=== PATIENT | female | born 1960 | race Caucasian/White ===

== ENCOUNTER 2024-07-08 06:25 | Day surgery (SDC) | payer OTHER ==
[2024-07-05 14:04] LABS: Absolute Eosinophils 0.2 K/uL (0-0.5); Absolute Monocytes 0.3 K/uL (0.1-1.3); Absolute Neutrophil 3.6 K/uL (1.8-8.0); Basophils % 0.8 % (0-1.3); Eosinophils % 3.4 % (0-4.4); Hematocrit 38.6 % (36.0-45.0); Hemoglobin 12.2 g/dL (12.0-15.0); Lymphocytes % 18.6 % (15.3-44.8); MCH 30.3 pg (27.0-35.0); MCHC 31.6 g/dL (32.0-36.0); MPV 7.2 fL (7.6-11.3); Monocytes % 6.8 % (3.3-12.3); Neutrophils % 70.4 % (41.7-73.7); Platelets 221 thou/uL (152-406); RBC Red Blood Cell Count 4.02 M/uL (3.86-4.86); Red Cell Distribution Width 15.9 % (12.1-15.2)
[2024-07-05 14:06] LABS: Specific Gravity 1.017 (1.005-1.030); Sqamous Epithelial <5 /HPF (None Seen); Urine Bacteria <20 /HPF (<20); Urine Bilirubin NEGATIVE (Negative); Urine Blood Negative (Negative); Urine Clarity Clear (Clear); Urine Color Light-Yellow (Yellow); Urine Culture Reflex Order NOT NEEDED; Urine Glucose NEGATIVE (Negative); Urine Ketones NEGATIVE (Negative); Urine Microscopic Reflex YN ORDER UMIC; Urine Mucus Slight /HPF (None Seen); Urine Nitrite NEGATIVE (Negative); Urine Protein NEGATIVE (Negative); Urine RBC <5 /HPF (None Seen); Urine Urobilinogen Normal (Normal); Urine WBC <5 /HPF (<5); Urine Yeast (Budding) Trace /HPF (None Seen); Urine pH 6.5 (5.0-7.0)
[2024-07-05 14:17] LABS: Anion Gap 6.3 mEq/L (5.0-15.0); Potassium 4.3 mEq/L (3.5-5.1)
--- NOTE | 2024-07-05 17:20 | EKG ---
Test Date: 2024-07-05 Test Time: 14:36:03 It Service Manager: CAROLYN MEASUREMENT RESULTS: Intervals: Rate: 53 OH: 182 QRSD: 120 QT: 430 QTc: 403 Converse: P: 72 OH: 182 QRS: 28 T: 44 INTERPRETIVE STATEMENTS: Sinus bradycardia with sinus arrhythmia Low voltage QRS Right bundle branch block Abnormal ECG No previous ECG available for comparison Electronically Signed On 07-05-24 17:19:43 CLINICAL PROGRAM DIRECTOR by Zeb Ruiz
[2024-07-08] MEDS: Ringers Lactate 1,000 ML IV ONE (06:25)
[2024-07-08] MEDS ORDERED: CEFAZOLIN SODIUM 1 GM/VIAL ONE (06:42)
[2024-07-08] MEDS: SCOPOLAMINE HYDROBROMIDE PATCH TD ONE (07:10)
[2024-07-08] MEDS ORDERED: propofoL 200 MG/20 ML VIAL IV ONE (07:11)
[2024-07-08] MEDS ORDERED: ONDANSETRON 4 MG/2 ML VIAL ONE (07:11)
[2024-07-08] MEDS ORDERED: LIDOCAINE 2% MPF 5 ML VIAL ONE (07:11)
[2024-07-08] MEDS ORDERED: FENTANYL CITR 100 MCG/2 ML ONE ×2 (07:11→08:35)
[2024-07-08] MEDS ORDERED: MIDAZOLAM HCL 2 MG/2 ML INJ ONE (07:11)
[2024-07-08] MEDS ORDERED: ROCURONIUM 50 MG/5 ML VIAL IV ONE ×2 (07:12→09:05)
[2024-07-08] MEDS: CEFAZOLIN SODIUM 2 GM/VIAL ONE (07:27)
[2024-07-08] MEDS: BUPIVACAINE 0.25% PF 30 ML VIAL ONE (07:27)
[2024-07-08] MEDS: NA CHLORIDE 0.9% 1,000 ML ONE (08:15)
[2024-07-08] MEDS ORDERED: EPHEDRINE SULF 50 MG/ML VIAL ONE (08:30)
[2024-07-08] MEDS ORDERED: dexAMETHasone 4 MG/ML VIAL ONE (09:17)
[2024-07-08] MEDS ORDERED: Mastisol Adhesive Liq ONE (09:59)
[2024-07-08] MEDS ORDERED: GLYCOPYRROLATE 0.2 MG/ML SYR ONE (10:12)
[2024-07-08] MEDS ORDERED: NEOSTIGMINE 1 MG/ML -10 ML VIAL ONE (10:12)
[2024-07-08] MEDS ORDERED: ESMOLOL HCL 10 ML IV ONE (10:33)
[2024-07-08] MEDS: FENTANYL CITR 100 MCG/2 ML ONE (10:51)
[2024-07-08] MEDS: ONDANSETRON 4 MG/2 ML VIAL ONE (10:56)
[2024-07-08] MEDS: PROMETHAZINE INJ 25 MG/ML AMP ONE (11:53)
[2024-07-08] MEDS: HYDROCODONE/APAP 5/325 MG TAB ONE (12:17)
[2024-07-08 13:18] VITALS: TEMP 98; O2SAT 94
[2024-07-08 13:28] VITALS: BP 130/60
--- NOTE | 2024-07-09 01:13 | OP ---
Date of Procedure: 07/08/2024 Surgeon: Tricia Farah MD Machine Heel Builder: Elida Mackenzie. Preoperative Diagnosis: Postmenopausal bleeding and endometrial polyps. Postoperative Diagnosis: Postmenopausal bleeding and endometrial polyps. Procedures Performed: Total laparoscopic hysterectomy, bilateral salpingo-oophorectomy, pelvic washi ngs, left lateral wall nodule biopsy, and lysis of adhesions from the sigmoid colon to the left tube and the lateral wall. Anesthesia: General endotracheal. Ebl: 50. Specimens: Uterus, bilateral tubes and ovaries, pelvic washings, and left lateral wall nodule, utero sacral suspensions. Complications: No complications. Drains: No drains. Condition: Stable. Findings: Left lateral wall nodule which appeared to be peritoneal, but it was deep and infiltrating was attached to the sigmoid colon with the epiploicae and not to the wall. This nodule was infiltra ting once I opened the peritoneum all around it, deep and infiltrating to the area of the distal port ion of the ureter right underneath the uterine artery. I could not completely separate out the nodul e, and therefore, shave biopsy was taken and handed out. The vaginal cuff was closed with PDS sutures in an interrupted fashion. Indication: The patient is a 63-year-old referred by Dr. Dhaliwal who has a renal cell carcinoma and i s currently under treatment for this. She also has history of smoking and has not been able to quit this. So after medical clearance was obtained from Hematology, where the recommendation was that we operate on the week. She is off Keytruda. Dr. Dennis gave her a risk assessment as well and cleared h er, so then she was brought to the operating room. After workup, she had an endometrial sampling that did not show any atypia or malignancy. There was endometrial polyp. There was a small area on the posterior distal wall that appeared to be irregular , but rest of the endometrium appeared to be unremarkable. 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 Benefits and risks were reviewed with the patient a nd she wanted to proceed with a hysterectomy. Since clearance was given, we brought her to the OR. After informed consent was verified in the preoperative area, she was taken back to the OR. All ques tions and answers were done to the satisfaction of her and her partner. Procedure In Detail: She was placed in supine fashion on the operating table. General anesthesia wa s given and then placed in a dorsal lithotomy position using Bryce stirrups. Arms were tucked by the side. SCDs were started. Positioning was checked. Time-out was done. Abdomen prepped with Chlora Prep. Vulva, vagina, and perineum with Betadine and draped in a sterile fashion. Yanez was placed t o drain the bladder. Speculum placed to expose the cervix and anterior lip of the cervix was grasped with 2 Allis clamps, dilated to 16-Peruvian and a medium-size cup uterine manipulator was introduced a nd fixed in place. This area was draped. 1 cm infraumbilical midline incision was made with a scalpel after injecting Bupivacaine on the skin. Then, fascia was incised and tagged with 0 Vicryl sutures. While the patient had history of hernia repair, this was without mesh and then the incision was in the upper midline abdomen. I was able to easily incise the fascia, tagged with 0 Vicryl sutures, and into peritoneum bluntly and S retractors were placed. David introduced and after adequate insufflation, there were adhesions of the omentum to the anterior abdominal wall on the right side. The patient also had a right nephrectomy robotica lly and these adhesions could be also from that procedure. The patient was placed in a significant Trendelenburg. A 10/11 trocar into suprapubic site and two 5s on both of the lower quadrants and then left upper quadrant midclavicular line port. 5 ports was also placed. After surveying the pelvic cavity, the adhesions of the colon as noted in the findings were noted. Lysis of sigmoid adhesions, these were taken starting on the left paracolic gutter coming down to the pelvic brim and then they were taken down to the left lateral pelvic sidewall. The ureter was ident ified medially and swept laterally. Then, dissection was performed to separate the colon from the si dewall as well as the tubes. The tubal adhesions were taken down also with the LigaSure, as there we re vascular. The tube and ovary were dissected from the posterior broad ligament and out. Lateral mesos alpinx on the left side was opened up to the round ligament and then to the base of the IP and the me dial leaf of the broad ligament between the IP ligament and the ureter was opened up sharply. The ov doreen pedicle was taken down with the help of the LigaSure. The round ligament was then isolated and taken down on the left side, anterior peritoneum dissected to the anterior vaginal wall, raising the bladder flap, exposing the vessels, and then posterior peritoneum taken down to the posterior cuff. As I was dissecting this, there was a lateral nodule where the epiploicae of the colon were adhered to the periureteric area. Periureteric nodule, left lateral wall nodule biopsy. The peritoneum on the periphery of this nodule was opened up, which was normal with the LigaSure with slight heat as well as sharp dissection. The n as I was attempting to remove this entire nodule, the ureter had to be dissected and once the cours e of the ureter was viewed, this nodule was right on top of the distal portion of the ureter. So a s have biopsy was taken with the LigaSure and handed off for permanent pathology, and I dissected the p eritoneum inferior and medial to the nodule to open up the space to expose the uterosacral ligament a nd dissected the ureter laterally. Once this space was obtained then the peritoneum taken down to co me down to the posterior portion of the vaginal cuff. Then anteriorly, the vessels were isolated and dissection performed to isolate the vessels closer to the internal os. Once this was done, they wer e cauterized and cut with the bipolar. The cardinal ligaments were also cauterized and cut with the bipolar and monopolar instruments. On the opposite side, the IP ligament was isolated opening the mesosalpinx above and below it, then t aken down the round ligament going down dissecting the peritoneum anterior leaves towards the IP. Th e peritoneum between the ureter and IP was taken down. The pedicle of the ovary was cauterized and c ut and . Mesosalpinx was taken down since round was already taken down posterior peritoneum taken down to the posterior cuff and the vessels were isolated after taking down the broad ligament vessels. The vessels were taken down with the help of the LigaSure and the monopolar hook blade. Th e cardinal ligaments were also taken, cauterized, and cut. The bladder was dissected inferiorly claudia ply and then once this was done to at least 1 cm, then the monopolar hook was used to perform an ante rior colpotomy and carried on both sides to the posterior and the specimen and retrieved th rough the vagina. Vaginal occluder was placed. There was excellent hemostasis. Interrupted PDS sut ures were placed, 2 angle simple sutures and 3 [id number] in the middle. Good apposition and s upport were noted. The ureters had no evidence of electrical, mechanical injury to them, but the nod ule on the left side was still persistent. After visualizing the entire peritoneal cavity, all the trocars were removed under direct vision. Th e patient was flattened out and the fascia at the umbilicus was closed with the tag 0 Vicryl sutures tied to each other after desufflating the abdomen and removing the David. Suprapubic site was diffi cult to close at the fascial level, so a deep subcutaneous stitch was placed with a simple 0 Vicryl s titch and all skin incisions closed with 4-0 Monocryl and 4-0 Vicryl as available. Yanez was removed and vaginal occluder was removed. The patient was recovered from anesthesia. EBL was 50. She was taken to the recovery room in stable condition and her was debriefed about the procedure. We will see her back in the office in 7 to 10 days and then in 1 month postop and she has been signific antly counseled about cessation of cigarettes explaining the delayed healing as well as complications like infection and poor healing are more common dehiscence was also reviewed. The patient was ready to attempt to quit cigarettes. KEV/KULDIP Voice ID: [id number] Report ID: [id number]
== END 2024-07-08 12:37 | disposition home or self-care (01) ==
LOC: OR 06:25
PROVIDERS: ATTEND Obstetrics & Gynecology
PROC: 0UT24ZZ Resection of Bilateral Ovaries, Percutaneous Endoscopic Approach (ICD-10-PCS; 2024-07-08)
PROC: 0UT74ZZ Resection of Bilateral Fallopian Tubes, Percutaneous Endoscopic Approach (ICD-10-PCS; 2024-07-08)
PROC: 0UT94ZZ Resection of Uterus, Percutaneous Endoscopic Approach (ICD-10-PCS; principal; 2024-07-08 07:30)
DX: N95.0 Postmenopausal bleeding (principal); N84.0 Polyp of corpus uteri; C64.9 Malignant neoplasm of unspecified kidney, except renal pelvis; F17.210 Nicotine dependence, cigarettes, uncomplicated; N88.8 Other specified noninflammatory disorders of cervix uteri
CPT/HCPCS: 58571; 93005; 85025; 81001; 80048; 36415; 86900; 88108; 86850; 86901; 88305 ×2; 88307; J2550; J2704; J1100; J2710; J2003; J2250; J3010 ×3; J2405 ×2; J7120; J7030; J0690

== ENCOUNTER 2024-08-02 17:37 | Emergency (ER) | payer OTHER ==
--- OUTSIDE RECORDS SUMMARY | 2024-08-02 17:41 | XMS REPORT | Clinical Summary ---
Author Name Unknown Organization [facility] Address [address] [place] [address] Care Team Providers Care Tire Mounter Name Role Phone Maricruz Seo MD Primary Care Provider Alli Dorsey MD Primary Care Provider [phone] Active Problems Problem Noted Date Diagnosed Date Renal mass 08/12/2023 Encounters Date Type Department Care Team Description 09/17/2023 8:05 PM [employer] Ancillary Procedure Image Library [address] [place] [id number] Alli Dorsey MD Cancer 09/17/2023 8:00 PM [employer] Ancillary Procedure Image Library [address] [place] [id number] Alli Dorsey MD Cancer after 08/03/2023 Medical History Medical History Date Comments Overactive bladder Hypertension Gastro-esophageal reflux disease without esophag itis Social History Tobacco Use Types Packs/Day Years Used Date Smoking Tobacco: Never Assessed Comments Unknown Sex and Gender Information Value Date Recorded Sex Assigned at Not on file Legal Sex Female 9:05 AM [employer] Gender Identity Not on file Sexual Orientation Not on file Obstetrics History Plan of Treatment Not on file Procedures Procedure Name Priority Date/Time Associated Diagnosis Comments OSI CT ABDOMEN Routine 08/20/2023 7:29 PM [employer] Cancer OSI CT CHEST Routine 08/12/2023 7:32 PM [employer] Cancer after 08/03/2023 Results * OSI CT Abdomen (08/20/2023 7:29 PM [employer]) Narrative Systemgenerated, Documentation - 09/17/2023 7:29 PM [employer] Study acquired at another institution. For comparison only. No MD Dye originated interpretation requested or available. us Alli Dorsey MD IMG OUTSIDE IMAGE ORDERABLES Fin al Result * OSI CT Chest (08/12/2023 7:32 PM [employer]) Narrative Systemgenerated, Documentation - 09/17/2023 7:32 PM [employer] Study acquired at another institution. For comparison only. No MD Dye originated interpretation requested or available. us Alli Dorsey MD IMG OUTSIDE IMAGE ORDERABLES Fin al Result after 08/03/2023 Insurance [employer] MED[employer] PPO [employer] MEDICARE PPO Care Teams Tire Mounter Relationship Specialty [place] [address] [place] [id number] [email or web address] PCP - General Urology 09/11/23 09/15/23 Alli Dorsey MD [address] [place] [address] [email or web address] PCP - General Urology 09/16/23
--- NOTE | 2024-08-02 18:50 | RAD REPORT ---
EXAMINATION: ONE VIEW CHEST XR CLINICAL INDICATION: Female, 63 years old.,ABDOMINAL DISTENTION TECHNIQUE: Frontal chest projection is submitted. Examination is limited by patient positioning and t echnique. COMPARISON: No prior exam. FINDINGS: The lungs are well inflated and clear. No pneumothorax or sizable effusion. The heart is normal in s ize. Mediastinal contours are unremarkable. IMPRESSION: No acute intrathoracic abnormalities.
[2024-08-02] MEDS ORDERED: NA CHLORIDE 0.9% 1,000 ML ONE (20:13)
[2024-08-02 20:22] LABS: Absolute Basophils 0.1 K/uL (0-0.5); Absolute Eosinophils 0.4 K/uL (0-0.5); Absolute Lymphocytes (CBC) 1.1 K/uL (0.7-4.9); Absolute Monocytes 0.6 K/uL (0.1-1.3); Absolute Neutrophil 4.5 K/uL (1.8-8.0); Basophils % 0.9 % (0-1.3); Eosinophils % 5.5 % (0-4.4); Hematocrit 38.9 % (36.0-45.0); Hemoglobin 12.6 g/dL (12.0-15.0); Lymphocytes % 16.2 % (15.3-44.8); MCH 30.9 pg (27.0-35.0); MCHC 32.4 g/dL (32.0-36.0); MCV 95.3 fL (80-100); MPV 7.3 fL (7.6-11.3); Neutrophils % 68.4 % (41.7-73.7); Nucleated Red Blood Cells % 0.2 % (0-0); Platelets 221 thou/uL (152-406); RBC Red Blood Cell Count 4.08 M/uL (3.86-4.86); Red Cell Distribution Width 15.1 % (12.1-15.2)
[2024-08-02 20:24] LABS: PT Prothrombin Time 12.8 SECONDS (9.4-12.5); Protime INR 1.15
[2024-08-02 20:39] LABS: Albumin 3.2 g/dL (3.4-5.0); Albumin/Globulin Ratio 0.9 (1.1-1.8); Alkaline Phosphatase 95 U/L (45-117); Anion Gap 5.9 mEq/L (5.0-15.0); BUN Blood Urea Nitrogen 10 mg/dL (7-18); Bicarbonate 31 mEq/L (21-32); Bilirubin Total 0.3 mg/dL (0.2-1.0); Globulin 3.6 g/dL (2.3-3.5); Glomerular Filtration Rate 43 ml/min (=/>90); Glucose Level 86 mg/dL (74-106); Lipase 15 U/L (13-75); Magnesium 1.9 mg/dL (1.6-2.4); NT PRO-BNP 609 pg/mL (<125); Potassium 3.9 mEq/L (3.5-5.1); Protein, Total 6.8 g/dL (6.4-8.2); Sodium Level 139 mEq/L (136-145); Troponin High Sensitivity 6.9 pg/mL (<58.9)
[2024-08-02 20:41] LABS: ALT/SGPT < 14 U/L (13-56); AST/SGOT < 10 U/L (15-37); Bilirubin Direct < 0.2 mg/dL (0-0.2); Bilirubin Indirect, Calculated 0.1 mg/dL (0.2-0.8)
[2024-08-02 20:42] LABS: SARS-CoV-2 Antigen CONTROL BLUE LINE VIS/BG OK; SARS-CoV-2 Antigen Rapid Res Negative (Negative)
--- NOTE | 2024-08-02 21:57 | RAD REPORT ---
EXAM: CT Chest For Pe Angio TECHNIQUE: CT angiogram of the chest was performed following intravenous contrast administration, inc luding sagittal and coronal as well as maximum intensity projection reformats. One or more of the following dose reduction techniques were used: Automated exposure control, adjustment of the mA and k V according to patient size, and iterative reconstruction. Unless otherwise specified, incidental findings do not require dedicated imaging follow-up. INDICATION: [facility] DYSPNEA Bed Name: 25 N COMPARISON: 04/15/2024. FINDINGS: LINES/TUBES: None. PULMONARY ARTERIES: Main pulmonary arteries are normal in caliber. No filling defects within the pul monary arteries to suggest pulmonary embolus. LUNGS AND AIRWAYS: Stable left apical para bronchovascular nodules, largest measuring 9 mm seen on ax ial image 110 The lungs and central airways are normal without other focal abnormality. PLEURA: No effusion or pneumothorax. HEART AND MEDIASTINUM: The visualized thyroid gland is normal. No mediastinal, hilar, or axillary lym phadenopathy. Heart is unremarkable. No pericardial effusion. SOFT TISSUES AND BONES: No acute osseous abnormality. No significant soft tissue finding. UPPER ABDOMEN: Left liver lobe well-circumscribed hypoattenuating 2.7 cm cyst, stable, allowing for d ifferences in measurement plane. IMPRESSION: No evidence of acute central pulmonary emboli. No suspicious intrathoracic findings. Stable findings, as above.
--- NOTE | 2024-08-02 22:57 | EDPHYS ---
Physician Documentation [facility] Name: Navneet Castillo Age: 63 yrs Sex: Female : 1960 Arrival Date: 08/02/2024 Time: 17:37 Bed 25 Private MD: ED Physician Duong Kraft HPI: 08/02 19:53 This 63 yrs old Female presents to ER via Ambulatory with complaints of evelin Shortness Of Breath. 19:53 The patient has shortness of breath at rest, with light activity. Onset: The evelin symptoms/episode began/occurred 3 day(s) ago. Duration: The symptoms are continuous, and are unchanged since they started. The patient's shortness of breath is aggravated by light activity, is alleviated by rest, sitting up. Associated signs and symptoms: Pertinent positives: This patient does not have any pertinent positive signs or symptoms associated with shortness of breath. Severity of symptoms: At their worst the symptoms were mild in the emergency department the symptoms are unchanged. The patient has not experienced similar symptoms in the past. 21:47 Patient care was assumed from Dr. Dye. sp4 Historical: - Allergies: 18:19 No Known Allergies; cm10 - Home Meds: 18:19 atorvastatin 20 mg oral tablet 1 tab daily [Active]; oxycodone-acetaminophen 7.5-325 mg cm10 Oral tablet 1 tab 3 times per day for pain [Active]; paroxetine HCl 10 mg oral tablet 1 tab daily [Active]; levofloxacin 500 mg Oral tablet 1 tab [Active]; oxybutynin chloride 10 mg Oral Tablet, Extended Release 24 hr 1 tab daily [Active]; gabapentin 400 mg oral capsule 1 cap 2 times per day [Active]; olmesartan 40 mg oral tablet 1 tab daily [Active]; Keytruda intravenous for renal cell carcinoma [Active]; - PMHx: 18:19 Hypertensive disorder; Hypercholesterolemia; Depressive disorder; RENAL CELL CARCINOMA; cm10 Chronic back pain; - PSHx: 18:19 NEPHRECTOMY- RIGHT; cm10 - Immunization history:: Adult Immunizations up to date. - Infectious Disease History:: Denies. - Social history:: Smoking status: Reported history of juuling and/or vaping. ROS: 19:54 Constitutional: Negative for fever, chills, and weight loss, Eyes: Negative for injury, evelin pain, redness, and discharge, ENT: Negative for injury, pain, and discharge, Neck: Negative for injury, pain, and swelling, Cardiovascular: Negative for chest pain, palpitations, and edema, Abdomen/GI: Negative for abdominal pain, nausea, vomiting, diarrhea, and constipation, Back: Negative for injury and pain, : Negative for injury, bleeding, discharge, and swelling, MS/Extremity: Negative for injury and deformity, Skin: Negative for injury, rash, and discoloration, Neuro: Negative for headache, weakness, numbness, tingling, and seizure, Psych: Negative for depression, anxiety, suicide ideation, homicidal ideation, and hallucinations, Allergy/Immunology: Negative for hives, rash, and allergies, Endocrine: Negative for neck swelling, polydipsia, polyuria, polyphagia, and marked weight changes, Hematologic/Lymphatic: Negative for swollen nodes, abnormal bleeding, and unusual bruising, 19:54 Respiratory: Positive for cough, shortness of breath, on exertion. Exam: 19:54 Constitutional: This is a well developed, well nourished patient who is awake, alert, evelin and in no acute distress. Head/Face: Normocephalic, atraumatic. Eyes: Pupils equal round and reactive to light, extra-ocular motions intact. Lids and lashes normal. Conjunctiva and sclera are non-icteric and not injected. Cornea within normal limits. Periorbital areas with no swelling, redness, or edema. ENT: Nares patent. No nasal discharge, no septal abnormalities noted. Tympanic membranes are normal and external auditory canals are clear. Oropharynx with no redness, swelling, or masses, exudates, or evidence of obstruction, uvula midline. Mucous membranes moist. Neck: Trachea midline, no thyromegaly or masses palpated, and no cervical lymphadenopathy. Supple, full range of motion without nuchal rigidity, or vertebral point tenderness. No Meningismus. Chest/axilla: Normal chest wall appearance and motion. Nontender with no deformity. No lesions are appreciated. Cardiovascular: Regular rate and rhythm with a normal S1 and S2. No gallops, murmurs, or rubs. Normal PMI, no JVD. No pulse deficits. Respiratory: Lungs have equal breath sounds bilaterally, clear to auscultation and percussion. No rales, rhonchi or wheezes noted. No increased work of breathing, no retractions or nasal flaring. Abdomen/GI: Soft, non-tender, with normal bowel sounds. No distension or tympany. No guarding or rebound. No evidence of tenderness throughout. Back: No spinal tenderness. No costovertebral tenderness. Full range of motion. Skin: Warm, dry with normal turgor. Normal color with no rashes, no lesions, and no evidence of cellulitis. MS/ Extremity: Pulses equal, no cyanosis. Neurovascular intact. Full, normal range of motion., bilateral aka Neuro: Awake and alert, GCS 15, oriented to person, place, time, and situation. Cranial nerves II-XII grossly intact. Motor strength 5/5 in all extremities. Sensory grossly intact. Cerebellar exam normal. Normal gait. Psych: Awake, alert, with orientation to person, place and time. Behavior, mood, and affect are within normal limits. 19:54 Musculoskeletal/extremity: ROM: intact in all extremities, full active range of motion, full passive range of motion, Pulses: are normal with no appreciated deficits, Sensation intact. Compartment Syndrome exam of affected extremity: is normal. Joints: All joints appear normal with full range of motion. Weight bearing: able to fully bear weight, DVT Exam: No signs of deep vein thrombosis. no pain, no swelling, no tenderness, negative Homans' sign noted on exam, no appreciated bluish discoloration, no erythema, no increased warmth, 20:31 ECG was reviewed by the Attending Physician. [facility] Vital Signs: 18:18 BP 132 / 76; Pulse 72; Resp 19; Temp 97.3(O); Pulse Ox 98% on R/A; Weight 97.98 kg; cm10 Height 5 ft. 6 in. ; Pain 0/10; 22:17 BP 131 / 79; Pulse 61; Resp 16; Pulse Ox 100% on R/A; jb4 18:18 Body Mass Index 34.86 (97.98 kg, 167.64 cm) cm10 18:18 Pain Scale: Adult cm10 [place] Coma Score: 19:54 Eye Response: spontaneous(4). Motor Response: obeys commands(6). Verbal Response: evelin oriented(5). Total: 15. MDM: 17:51 Medical Screening Exam initiated [facility] 19:56 Differential diagnosis: Anemia Bronchitis CHF exacerbation, pneumonia, Pneumothorax evelin pulmonary edema, Pulmonary Embolism reactive airway disease, Sepsis Unstable Angina. Antibiotic administration: Not indicated. Differential Diagnosis: Obstructed Airway Bronchitis Influenza Upper Respiratory Infection Sinusitis Pharyngitis Otitis Media Asthma Exacerbation Viral Syndrome Pneumonia. Immunization status: Pneumococcal vaccine: within last 5 years. Influenza vaccine: within last 5 years. Data reviewed: vital signs, nurses notes, lab test result(s), EKG, radiologic studies, CT scan, plain films. Consideration of Admission/Observation Escalation of care including admission/observation considered. I considered the following discharge prescriptions or medication management in the emergency department Medications were administered in the Emergency Department. See MAR. Independent interpretation of the following test(s) in the Emergency Department EKG: See my EKG interpretation above. Test considered but Not performed: Ultrasound no 2 d echo. Historians other than the Patient: Spouse/Significant Other: well informed. Care significantly affected by the following chronic conditions: Hypertension, Obesity, Cancer, nephrectomy, renal cell cancer, depression. Counseling: I had a detailed discussion with the patient and/or guardian regarding the historical points, exam findings, and any diagnostic results supporting the discharge/admit diagnosis, lab results, radiology results. 20:16 ED course: dr. delaney oreilly dispo. evelin 22:00 ED course: Dr. Goodson was contacted, he states that if CT chest PE protocol is negative sp4 patient is stable for discharge home with Lasix 40 mg daily and follow-up with his office next week. 22:52 ED course: EXAM: CT Chest For Pe Angio TECHNIQUE: CT angiogram of the chest was sp4 performed following intravenous contrast administration, including sagittal and coronal as well as maximum intensity projection reformats. One or more of the following dose reduction techniques were used: Automated exposure control, adjustment of the mA and kV according to patient size, and iterative reconstruction. Unless otherwise specified, incidental findings do not require dedicated imaging follow-up. INDICATION: [facility] MAIN DYSPNEA Bed Name: 25 N COMPARISON: 04/15/2024. FINDINGS: LINES/TUBES: None. PULMONARYARTERIES: Main pulmonary arteries are normal in caliber. No filling defects within the pulmonary arteries to suggest pulmonary embolus. LUNGS AND AIRWAYS: Stable left apical para bronchovascular nodules, largest measuring 9 mm seen on axial image 110 The lungs and central airways are normal without other focal abnormality. PLEURA: No effusion or pneumothorax. HEARTAND MEDIASTINUM: The visualized thyroid gland is normal. No mediastinal, hilar, or axillary lymphadenopathy. Heart is unremarkable. No pericardial effusion. SOFT TISSUES AND BONES: No acute osseous abnormality. No significant soft tissue finding. UPPER ABDOMEN: Left liver lobe well-circumscribed hypoattenuating 2.7 cm cyst, stable, allowing for differences in measurement plane. IMPRESSION: No evidence of acute central pulmonary emboli. No suspicious intrathoracic findings. Stable findings, as above. . ED course: EXAMINATION: ONE VIEW CHEST XR CLINICAL INDICATION: Female, 63 years old.,ABDOMINAL DISTENTION TECHNIQUE: Frontal chest projection is submitted. Examination is limited by patient positioning and technique. COMPARISON: No prior exam. FINDINGS: The lungs are well inflated and clear. No pneumothorax or sizable effusion. The heart is normal in size. Mediastinal contours are unremarkable. IMPRESSION: No acute intrathoracic abnormalities. . 08/02 17:54 Order name: Basic Metabolic Panel; Complete Time: 21:48 [facility] 08/02 17:54 Order name: CBC with Diff; Complete Time: 21:48 [facility] 08/02 17:54 Order name: LFT's; Complete Time: 21:48 [facility] 08/02 17:54 Order name: Magnesium; Complete Time: 21:48 [facility] 08/02 17:54 Order name: NT PRO-BNP; Complete Time: 21:48 [facility] 08/02 17:54 Order name: PT-INR; Complete Time: 21:48 [facility] 08/02 17:54 Order name: Troponin HS; Complete Time: 21:48 [facility] 08/02 17:54 Order name: Lipase; Complete Time: 21:48 [facility] 08/02 17:54 Order name: Flu; Complete Time: 21:48 [facility] 08/02 17:54 Order name: SARS RAPID; Complete Time: 21:48 [facility] 08/02 17:54 Order name: Lactate w/ 2H reflex if indic.; Complete Time: 21:48 [facility] 08/02 17:54 Order name: XRAY Chest (1 view); Complete Time: 19:47 evelin 08/02 19:52 Order name: CT Chest For PE Angio; Complete Time: 05:36 evelin 08/02 17:54 Order name: EKG; Complete Time: 17:55 [facility] 08/02 17:54 Order name: Cardiac monitoring; Complete Time: 20:28 [facility] 08/02 17:54 Order name: EKG - Nurse/Tech; Complete Time: 20:26 [facility] 08/02 17:54 Order name: IV Saline Lock; Complete Time: 20:28 [facility] 08/02 17:54 Order name: Labs collected and sent; Complete Time: 20: [facility] 08/02 17:54 Order name: O2 Per Protocol; Complete Time: 19:54 [facility] 08/02 17:54 Order name: O2 Sat Monitoring; Complete Time: 19:54 [facility] EC:31 Rate is 59 beats/min. Rhythm is regular. QRS [place] is Normal. MA interval is normal. QRS evelin interval is normal. QT interval is normal. No Q waves. T waves are Normal. No ST changes noted. Clinical impression: Sinus bradycardia and No evidence of ischemia. Interpreted by me. Reviewed by me. Administered Medications: 20:14 Not Given (Other Intervention Used): ns 0.9% 500 ml 500 ml IV at 125 ml/hr once jb4 20:14 Not Given (Other Intervention Used): ns 0.9% 500 ml 500 ml IV at 1 bolus once; to be jb4 given as a bolus over 30 minutes 20:22 Drug: NS 0.9% IV 1000 ml IV at 1000 ml once; to be given as a bolus over 60 minutes jb4 Route: IV; Rate: 1000 ml; Site: left antecubital; 21:22 Follow up: Response: No adverse reaction; IV Status: Completed infusion; IV Intake: jb4 1000ml Disposition Summary: 08/02/24 22:56 Discharge Ordered Notes: Location: Home sp4 Problem: new sp4 Symptoms: have improved sp4 Condition: Stable sp4 Diagnosis - Dyspnea on exertion sp4 Followup: sp4 - With: Billy Dennis MD - When: 5 - 6 days - Reason: Recheck today's complaints Discharge Instructions: - Discharge Summary Sheet sp4 - Shortness of Breath, Adult, [id number] sp4 Forms: - Patient Portal Instructions sp4 Prescriptions: - Lasix 40 mg Oral Tablet - take 1 tablet ORAL route once daily for 30 days; 30 tablet; Refills: 0, Product sp4 Selection Permitted Signatures: Dispatcher [employer] Toni Noriega MD MD cha Bryson, James, RN RN jb4 Duong Kraft MD MD sp4 Carla Barry RN RN cm10
--- NOTE | 2024-08-02 22:57 | ER ---
Nurse's Notes [facility] Name: Navneet Castillo Age: 63 yrs Sex: Female : 1960 Arrival Date: 08/02/2024 Time: 17:37 Bed 25 Private MD: Diagnosis: Dyspnea on exertion Presentation: 08/02 18:18 Chief complaint: Patient states: SHORTNESS OF BREATH x2 DAYS. PT STATES THAT THE cm10 SHORTNESS OF BREATH IS WORSE WITH EXERTION. Coronavirus screen: Client denies travel out of the [place] in the last 14 days. Ebola Screen: Patient denies travel to an Ebola-affected area in the 21 days before illness onset. Initial Sepsis Screen: Does the patient meet any 2 criteria? No. Patient's initial sepsis screen is negative. Does the patient have a suspected source of infection? No. Patient's initial sepsis screen is negative. Risk Assessment: Do you want to hurt yourself or someone else? Patient reports no desire to harm self or others. Onset of symptoms was August 02, 2024. 18:18 Method Of Arrival: Ambulatory cm10 18:18 Acuity: [place] 3 cm10 Triage Assessment: 18:23 General: Appears in no apparent distress. comfortable, Behavior is calm, cooperative. cm10 Neuro: No deficits noted. Level of Consciousness is awake, alert, obeys commands, Oriented to person, place, time, situation, Appropriate for age. Respiratory: No deficits noted. Reports shortness of breath on exertion Airway is patent Respiratory effort is even, unlabored, Respiratory pattern is regular, symmetrical, Breath sounds are clear bilaterally. Historical: - Allergies: 18:19 No Known Allergies; cm10 - Home Meds: 18:19 atorvastatin 20 mg oral tablet 1 tab daily [Active]; oxycodone-acetaminophen 7.5-325 mg cm10 Oral tablet 1 tab 3 times per day for pain [Active]; paroxetine HCl 10 mg oral tablet 1 tab daily [Active]; levofloxacin 500 mg Oral tablet 1 tab [Active]; oxybutynin chloride 10 mg Oral Tablet, Extended Release 24 hr 1 tab daily [Active]; gabapentin 400 mg oral capsule 1 cap 2 times per day [Active]; olmesartan 40 mg oral tablet 1 tab daily [Active]; Keytruda intravenous for renal cell carcinoma [Active]; - PMHx: 18:19 Hypertensive disorder; Hypercholesterolemia; Depressive disorder; RENAL CELL CARCINOMA; cm10 Chronic back pain; - PSHx: 18:19 NEPHRECTOMY- RIGHT; cm10 - Immunization history:: Adult Immunizations up to date. - Infectious Disease History:: Denies. - Social history:: Smoking status: Reported history of juuling and/or vaping. Screenin:20 [facility] ED Fall Risk Assessment (Adult) History of falling in the last 3 months, jb4 including since admission No falls in past 3 months (0 pts) Confusion or Disorientation No (0 pts) Intoxicated or Sedated No (0 pts) Impaired Gait No (0 pts) Mobility Assist Device Used No (0 pt) Altered Elimination No (0 pt) Score/Fall Risk Level 0 - 2 = Low Risk Oriented to surroundings, Maintained a safe environment. Abuse screen: Denies threats or abuse. Nutritional screening: No deficits noted. Tuberculosis screening: No symptoms or risk factors identified. Assessment: 22:16 Reassessment: Patient appears in no apparent distress at this time. Patient and/or jb4 family updated on plan of care and expected duration. Pain level reassessed. Patient is alert, oriented x 3, equal unlabored respirations, skin warm/dry/pink. 23:20 Reassessment: Patient appears in no apparent distress at this time. Patient and/or jb4 family updated on plan of care and expected duration. Pain level reassessed. Patient is alert, oriented x 3, equal unlabored respirations, skin warm/dry/pink. Vital Signs: 18:18 BP 132 / 76; Pulse 72; Resp 19; Temp 97.3(O); Pulse Ox 98% on R/A; Weight 97.98 kg; cm10 Height 5 ft. 6 in. ; Pain 0/10; 22:17 BP 131 / 79; Pulse 61; Resp 16; Pulse Ox 100% on R/A; jb4 18:18 Body Mass Index 34.86 (97.98 kg, 167.64 cm) cm10 18:18 Pain Scale: Adult cm10 [place] Coma Score: 19:54 Eye Response: spontaneous(4). Motor Response: obeys commands(6). Verbal Response: evelin oriented(5). Total: 15. ED Course: 17:39 Patient arrived in ED. im 17:51 Toni Dye MD is Attending Physician. evelin 18:19 Triage completed. cm10 18:20 XRAY Chest (1 view) In Process Unspecified. EDMS 18:23 Arm band placed on right wrist. Patient placed in waiting room. cm10 20:05 Initial lab(s) drawn, by me, sent to lab. Inserted saline lock: 18 gauge in left jb4 antecubital area, using aseptic technique. Blood collected. 20:26 EKG done, by engineering technical analyst. af3 20:29 Lactate w/ 2H reflex if indic. Sent. jb4 20:29 Blood Culture Adult (2) Sent. jb4 20:29 SARS RAPID Sent. jb4 20:29 Flu Sent. jb4 20:29 Lipase Sent. jb4 20:29 Basic Metabolic Panel Sent. jb4 20:29 CBC with Diff Sent. jb4 20:29 LFT's Sent. jb4 20:29 Magnesium Sent. jb4 20:29 NT PRO-BNP Sent. jb4 20:29 Troponin HS Sent. jb4 21:02 CT Chest For PE Angio In Process Unspecified. EDMS 21:46 Attending Physician role handed off by Toni Dye MD sp4 21:46 Duong Kraft MD is Attending Physician. sp4 22:16 Esequiel Dudley, SHAYY is Primary Nurse. jb4 22:56 Billy Dennis MD is Referral Physician. sp4 23:20 Patient has correct armband on for positive identification. Bed in low position. Call jb4 light in reach. Side rails up X 1. Provided Education on: discharge instructions.. 23:20 No provider procedures requiring assistance completed. IV discontinued, intact, jb4 bleeding controlled, No redness/swelling at site. Pressure dressing applied. Administered Medications: 20:14 Not Given (Other Intervention Used): ns 0.9% 500 ml 500 ml IV at 125 ml/hr once jb4 20:14 Not Given (Other Intervention Used): ns 0.9% 500 ml 500 ml IV at 1 bolus once; to be jb4 given as a bolus over 30 minutes 20:22 Drug: NS 0.9% IV 1000 ml IV at 1000 ml once; to be given as a bolus over 60 minutes jb4 Route: IV; Rate: 1000 ml; Site: left antecubital; 21:22 Follow up: Response: No adverse reaction; IV Status: Completed infusion; IV Intake: jb4 1000ml Medication: 23:20 VIS not applicable for this client. jb4 Intake: 21:22 IV: 1000ml; Total: 1000ml. jb4 Outcome: 22:56 Discharge ordered by . spSherry 23:20 Discharged to home ambulatory, jb4 23:20 Condition: stable 23:20 Discharge instructions given to patient, Instructed on discharge instructions, follow up and referral plans. medication usage, Demonstrated understanding of instructions, follow-up care, medications, Prescriptions given X 1, 23:24 Patient left the ED. jb4 Signatures: Dispatcher [employer] EDMS Toni Dye MD MD cha Bryson, James, RN RN jb4 Duong Kraft MD MD sp4 Catrachita Soni Clarissa RN RN cm10 Rebecca [email or web address] Corrections: (The following items were deleted from the chart) 18:23 18:18 BP 132 / 76; Pulse 197bpm; Resp 19bpm; Pulse Ox 98% RA; Temp 97.3F Oral; 97.98 cm10 kg; Height 5 ft. 6 in.; BMI: 34.8; Pain 0/10, Adult; cm10
[2024-08-02 23:37] VITALS: TEMP 97.3
[2024-08-02 23:39] VITALS: BP 131/79; O2SAT 100
== END 2024-08-02 23:24 | disposition home or self-care (01) ==
LOC: ER 17:37
DX: R06.00 Dyspnea, unspecified (principal); Z11.52 Encounter for screening for COVID-19; I10 Essential (primary) hypertension; E78.00 Pure hypercholesterolemia, unspecified; F32.A Depression, unspecified
CPT/HCPCS: 85025; 80048; 36415; 83735; 85610; 80076; 83605; 84484; 83690; 83880; 87804 ×2; 71275; 71045; 96360; 99284; 87811; Q9967; J7030; 87040